=== PATIENT | female | born 1935 | race Caucasian/White ===

== ENCOUNTER 2017-02-17 04:43 | Inpatient (IN) | payer MEDICARE ==
[~2017-02-17] VITALS: Ht 157.5 cm; Wt 95.2 kg
[2017-02-17] VITALS (13 sets, daily range): BP systolic 103–130; BP diastolic 52–73; PULSE 59–89; RESP 12–24; O2SAT 97–99
[~2017-02-17 04:43] MED LIST: CALC-6 PO; CHOL20006 PO; FOSD70 PO; HYDR1TAB69 PO; LOPRESSOR25 MG PO; OMEG1CAP35 PO; SMV40T PO; TRIA1TAB3 PO; VIT B COMPLEX PO; calcium PO
[2017-02-17] MEDS ORDERED: 0.9% Sodium Chloride 1,000 ML IV ONE (04:56)
[2017-02-17] MEDS ORDERED: Pantoprazole 4 mg/mL 10 mL Inj IVPUSH ONE ×2 (05:00→08:15)
[2017-02-17 05:16] LABS: BASOPHILS % (AUTO) 0.5 % (0-3); EOSINOPHILS % (AUTO) 3.5 % (0-5); Mean Corpuscular Hemoglobin 28.2 pg (27.0-35.0); Mean Corpuscular Volume 87.7 fL (81-100); NEUTROPHILS % (AUTO) 59.8 % (40-74); Platelet Count 226 bil/L (150-400)
[2017-02-17 05:34] LABS: INR 0.96 ratio
[2017-02-17 05:38] LABS: TROPONIN T 0.01 ug/L (0.0-0.011)
[2017-02-17 05:49] LABS: Magnesium 1.8 mg/dL (1.6-2.6)
--- NOTE | 2017-02-17 06:15 | ED.REPORT ---
HPI-General Illness Date of Service February 17, 2017 ED Provider: Doris Ornelas MD The pt is a 81 year old female who presents to the ED via EMS due to several episodes of hematochezia for the past 3 days. Friday night she had 3 episodes of sudden onset black, clotted, red stool. Associated symptoms include vomiting , nausea and lightheadedness. Friday, she did not report any symptoms. This morning she woke up around 0330, had another episode of hematochezia and noticed blood on her nightgown when she woke up. When medics arrived she was hypotensive. Nursing Notes Stated Complaint: RECTAL BLEED Chief Complaint: Female Abdominal Pain Nursing Notes Reviewed: Yes Allergies: Coded Allergies: Sulfa (Sulfonamide Antibiotics) (Verified Allergy, Unknown, SWELLING, 02/17) Adhesives (Verified Adverse Reaction, Intermediate, rash, 02/17/17) Uncoded Allergies: SULFA (Allergy, Severe, Swelling, 02/17/17) Scheduled ([calcium]) PO DAILY with Mg and Zinc Alendronate-Expunged Drug, Do Not Renew! (Alendronate-Expunged Drug, Do Not Renew!) 70 Mg Tablet 70 MG PO QW Friday' Calcium Carbonate-Expunged Drug, Do Not Renew (Tums 500-Expunged Drug, Do Not Renew!) 1 Tab.chew Tab.chew 1 TAB.CHEW PO PRN Cholecalciferol-Expunged Drug, Do Not Renew! (Vitamin Y-8-Tpspbsia Drug, Do Not Renew!) 2,000 Unit Tablet 2,000 UNIT PO DAILY 2 tabs Hydrocod/APAP-Expunged, Do Not Renew! (Hydrocod/APAP 5/500-Expunged, Do Not Renew!) 1 Tab Tablet 1 TAB PO PRN Metoprolol Tart-Expunged Drug, Do Not Renew! (Metoprolol Tart-Expunged Drug, Do Not Renew!) 25 Mg Tab 25 MG PO BID [place]-3 Fatty Acids/Fish Oil-Expunged Drug, D (Fish Oil 1,200 Mg-Expunged Drug, Do Not Renew) 1 Cap Capsule 1 CAP PO DAILY Simvastatin-Expunged Drug, Choose New Med! (Simvastatin-Expunged Drug, Choose New Med!) 40 Mg Tablet 40 MG PO DAILY Triamterene/HCTZ-Expunged Drug, Do Not Renew! (Triamterene/HCTZ 37.5/25-Expunged ,Do Not Renw) 1 Tab Tablet 1 TAB PO AM Vitamin B Complex-Expunged Drug, Do Not Renew (Vitamin B Complex-Expunged Drug, Do Not Renew) Tab PO DAILY General Time Seen by MD: 04:58 Chief Complaint Other (hematochezia) Hx Obtained From: Patient Arrived By: Ambulance Sudden in Onset?: Yes Onset Occurred: 3 days ago Symptom Duration: Since onset Severity: Current: No pain currently Recent Healthcare: No recent doctor visit, No recent hospitalization Similar Sx Previous: No Past Medical History Past Medical History denies Past Surgical History knee surgery Reports: Hysterectomy Smoking History Unknown if Ever Smoker Social History Other Social History: Local resident Review of Systems Full Review of Systems GI: Reports: Bloody/tarry stool, Hematochezia, Nausea, Vomiting Neurologic: Reports: Lightheaded Complete sys rev & neg: except as marked. Physical Exam Vital Signs Vital Signs Date Time Temp Pulse Resp B/P Pulse Ox O2 Delivery O2 Flow Rate FiO2 02/17/17 07:32 66 12 121/52 98 Room Air 02/17/17 04:55 36.8 80 22 130/68 99 Room Air Initial VS: Reviewed Respiratory: Breath sounds normal, Clear to auscultation, No respiratory distress Skin: Warm, Dry Neurologic: Alert, Oriented General/Constitutional: Awake, Alert, No acute distress, Cooperative, Not toxic appearing Head / Eyes: Atraumatic, Normocephalic, PERRL, EOMI Heart Sounds / Murmur: Positive: Systolic murmur present.. (II/) Lower Ext Edema: Positive: Bilateral 1+ Bowel Sounds / Distention: Positive: Bowel sounds hyperactive Interpretation & Diagnostics Lab Results Interpretation Result Diagram: 02/17/17 0655 02/17/17 0500 Test 02/17/17 05:00 02/17/17 06:55 White Blood Count 8.1th/mm3 (3.8-10.1) Red Blood Count 3.09mil/mm3 (3.90-5.20) Mean Corpuscular Volume 87.7fL (81-100) Mean Corpuscular Hemoglobin 28.2pg (27.0-35.0) Mean Corpuscular Hemoglobin Concent 32.1% (32.0-37.0) Red Cell Distribution Width 13.8% (12.3-15.4) Platelet Count 226bil/L (150-400) Neutrophils (%) (Auto) 59.8% (40-74) Lymphocytes (%) (Auto) 26.7% (14-46) Monocytes (%) (Auto) 9.0% (4-12) Eosinophils (%) (Auto) 3.5% (0-5) Basophils (%) (Auto) 0.5% (0-3) Prothrombin Time 10.3sec (8.1-12.5) Prothromb Time International Ratio 0.96ratio Sodium Level 138mEq/L (134-144) Potassium Level 4.1mEq/L (3.5-5.2) Chloride Level 105mEq/L (97-108) Carbon Dioxide Level 19mmol/L (18-29) Blood Urea Nitrogen 38mg/dL (8-27) Creatinine 0.88mg/dL (0.57-1.00) Estimat Glomerular Filtration Rate 88mL/min (>59) Glucose Level 123mg/dL (60-99) Calcium Level 8.7mg/dL (8.5-10.1) Magnesium Level 1.8mg/dL (1.6-2.6) Total Bilirubin 0.2mg/dL (0.0-1.2) Aspartate Amino Transf (AST/SGOT) 13U/L (0-50) Alanine Aminotransferase (ALT/SGPT) 9U/L (0-32) Alkaline Phosphatase 47U/L (25-165) Troponin T 0.010ug/L (0.0-0.011) Total Protein 5.6g/dL (6.4-8.4) Albumin 3.2g/dL (3.4-5.0) Hold Bateman Top Tube Received (Received) Hemoglobin 7.8g/dL (12.0-15.6) Hematocrit 24.7% (35.0-46.0) Re-Eval/Medical Decision Med Decision/Clinical Course 81-year-old woman with painless rectal bleeding. Started 48 hours ago clots for about 12 hours resolved for about 36 hours and then started again this morning. She got some hyperactive bowel tones and feels like there is likely more clots that will be coming out. When medics first arrived her systolic blood pressure was 70 however with 200 mL of fluid it has been in the 120 range and she has been hemodynamically stable throughout her emergency room visit. H&H has dropped significantly and the initial 2 hour emergency room stay. At this point she is not tachycardic she is pain-free there is no active bleeding obvious she is hemodynamically stable not short of breath no chest pain and not meeting criteria for transfusion. She is typed and crossed should that become a necessity. Consultation : Referral / Consult Name: Adilene Tilley DO Consulted With: Hospitalist Call Returned at: 08:05 Scientific Diver: Agrees with eval, Agrees with plan Note: Case discussed. Counseled Regarding: Diagnosis, Lab results, Need for admission Discharge & Departure Primary Impression: GI bleed Additional Impression: Acute blood loss anemia Disposition: ADMITTED TO HOSPITAL Discharge Condition All VS Reviewed: Yes Condition: Stable Referrals: Sunny Queen DO (PCP) Scribcarla Attestation Portion of this note were transcribed by Mariah Bush. I, Dr. Cathy Ornelas, personally performed the history, physical exam, and medical decision-making: I reviewed and confirmed the accuracy for the information in the transcribed note. Signed by: yue Huffman, 02/17/17 0800 copies to: Sunny Queen Shawna L MD February 17, 2017 06:14 Mariah Bush February 17, 2017 06:40
--- NOTE | 2017-02-17 08:06 | DRSVH ---
PROCEDURE: X-RAY CHEST ONE VIEW, PORTABLE ([id number]) INDICATIONS: gi bleed TECHNIQUE: One view of the chest was acquired. COMPARISON: [facility], , CHEST 2VW, 02/11/2014, 15:14. FINDINGS: Surgical changes and devices: None. Lungs and pleura: No pleural effusions or pneumothorax. Lungs are clear. No acute consolidation. S cattered scarring/atelectasis as before. Lungs appear hyperinflated Mediastinum: Mediastinal contours appear normal. Heart size is normal. Bones and chest wall: Lateral curvature of the spine as before IMPRESSION: No definite acute disease or interval change. Chronic interstitial opacities as before. Dictated by: Floyd Torres M.D. on 02/17/2017 at 8:04 Approved by: Floyd Torres M.D. on 02/17/2017 at 8:05
[2017-02-17] MEDS ORDERED: Alum-Mag Hydrox-Simeth 30 mL Suspension PO PRN (08:10)
[2017-02-17] MEDS ORDERED: Ondansetron 2 mg/mL 2 mL Inj IVPUSH PRN (08:10)
[2017-02-17] MEDS ORDERED: Polyethylene Glycol (PEG) 17 Gm Powder PO PRN (08:10)
[2017-02-17] MEDS ORDERED: PEG/Electrolytes 4,000 mL Solution PO ONE (09:05)
--- NOTE | 2017-02-17 09:24 | NUR ---
Admission Pt arrived on [facility], A/Ox3, able to transfer self from gurney to BR, SBA to bathroom due to dizziness. Orientation video playing at this time.
[2017-02-17] MEDS: D5 0.45% NaCl + KCl 20 mEq/L 1,000 ML IV SCH ×2 (12:22→18:09)
[2017-02-17] MEDS ORDERED: Propofol 10,000 mCg/mL 20 mL Inj ONE (13:01)
[2017-02-17] MEDS ORDERED: EPHEDrine/NS 5 mg/mL 5 mL Syringe ONE (13:01)
[2017-02-17] MEDS ORDERED: CHOL500011 PO (14:05)
[2017-02-17] MEDS ORDERED: ALEN70TA2 PO (14:08)
[2017-02-17] MEDS ORDERED: HYDR-4003 PO (14:16)
[2017-02-17] MEDS ORDERED: ASPI325T32 PO (14:31)
[2017-02-17] MEDS ORDERED: ETOD400T PO (14:31)
[2017-02-17] MEDS ORDERED: CLOB15OI2 TP (14:31)
[2017-02-17] MEDS ORDERED: ATRV10T PO (14:31)
--- NOTE | 2017-02-17 16:15 | NUR ---
Off the unit Pt is taken off the unit for completion of colonoscopy/endoscopy. No complains of increased pain, VSS, IV is SL. Report given to Anahy. Pt able to transfer self to sai, voided prior to leaving. Addendum: 02/17/17 at 1833 by MELISSA العلي RN Pt returns from Endo, following completion of upper and lower GI study. VSS, no complains of increased pain. Diet advanced to clear liquids. Daughter at bedside. Call light with in reach, will continue to monitor.
[2017-02-17] MEDS: Lactated Ringer's 1,000 ML IV SCH ×2 (16:40→16:42)
[2017-02-17] MEDS ORDERED: MetoCLOpramide 5 mg/mL 2 mL Inj IVPUSH PRN (16:40)
--- NOTE | 2017-02-17 17:58 | PCM.ANEP1 ---
Post Anesthesia Phase 1 PACU Phase 1 Assessment Vital Signs Vital Signs Date Time Temp Pulse Resp B/P Pulse Ox O2 Delivery O2 Flow Rate FiO2 02/17/17 17:56 70 14 107/64 98 Room Air 02/17/17 17:45 35.4 75 14 107/64 97 Room Air 02/17/17 16:38 36.5 77 16 126/65 97 Room Air 02/17/17 11:05 64 Anesthetic Administered: GA Level of Alertness: Awake, talking SHARIF's with Equal Strength: Yes Pain: No Nausea or Vomiting: No Cardiovascular Function and Hy: No Oxygen Delivery: Room Air Dermatome Level: Full Sensation Complications: No Follow up Care: No Chace Morse MD February 17, 2017 17:58
--- NOTE | 2017-02-17 17:59 | PCM.HPANE ---
Patient Data Surgeon Admitting Provider:Adilene Tilley DO Attending Provider:Adilene Tilley DO Primary Care Physician:Sunny Queen DO Other Provider:Nilo Reed Anesthesia Reason for Visit Lower Gi Bleed Ht/WT & BMI Height (Feet): 5 Height (Inches): 2.00 Weight (Kilograms): 95.200 Body Mass Index 38.62 Allergies Coded Allergies: Sulfa (Sulfonamide Antibiotics) (Verified Allergy, Unknown, SWELLING, 02/17) Adhesives (Verified Adverse Reaction, Intermediate, rash, 02/17/17) Uncoded Allergies: SULFA (Allergy, Severe, Swelling, 02/17/17) Past Anesthesia History Anesthesia History: Denies:: Abnormal Airway, Anesthesia Reactions, Difficult Intubation, Fam Anesthesia Reaction, Fam Malignant Hypertherm, Malignant Hyperthermia Diabetes History Hx Diabetes?: No MRSA MRSA: No Medications Reported Medications Etodolac 400 Mg [id number] Mg PO BID 02/17/17 Clobetasol Propionate 15 Gm Oint...g.1 Applic TP Evening PRN rash Apply to external vulvar/labia rash once every pm 02/17/17 Atorvastatin (Lipitor)10 Mg Tab10 Mg PO DAILY Ref 0 02/17/17 Aspirin 325 Mg [id number] Mg PO DAILY PRN . #1 BOTTLE 02/17/17 Hydrocodone-Acetaminophen 5-325 mg 1 Each Tablet1 Tablet PO Q4H PRN For Pain Ref 0 02/17/17 Alendronate Sodium (Fosamax)70 Mg [id number] Mg PO WEEKLY 30 Days Ref 0 02/17/17 Cholecalciferol (Vitamin D3) (Vitamin D3)5,000 Unit Tablet5,000 Unit PO DAILY 02/17/17 Discontinued Reported Medications Alendronate-Expunged Drug, Do Not Renew! 70 Mg [id number] Mg PO QW Ref 0 Friday's 06/20/09 Hydrocod/APAP-Expunged, Do Not Renew! (Hydrocod/APAP 5/500-Expunged, Do Not Renew!)1 Tab Tablet1 Tab PO PRN Ref 0 06/20/09 Calcium Carbonate-Expunged Drug, Do Not Renew (Tums 500-Expunged Drug, Do Not Renew!)1 Tab.chew Tab.chew1 Tab.chew PO PRN Ref 0 06/20/09 Triamterene/HCTZ-Expunged Drug, Do Not Renew! (Triamterene/HCTZ 37.5/25-Expunged ,Do Not Renw)1 Tab Tablet1 Tab PO AM Ref 0 06/20/09 Simvastatin-Expunged Drug, Choose New Med! 40 Mg Nuuyiv28 Mg PO DAILY Ref 0 06/20/09 Metoprolol Tart-Expunged Drug, Do Not Renew! 25 Mg Tab25 Mg PO BID Ref 0 06/20/09 Cholecalciferol-Expunged Drug, Do Not Renew! (Vitamin O-4-Wswjknap Drug, Do Not Renew!)2,000 Unit Tablet2,000 Unit PO DAILY Ref 0 2 tabs 06/20/09 [calcium] No Conflict Check PO DAILY Ref 0 with Mg and Zinc 06/20/09 Vitamin B Complex-Expunged Drug, Do Not Renew Tab PO DAILY Ref 0 06/20/09 [place]-3 Fatty Acids/Fish Oil-Expunged Drug, D (Fish Oil 1,200 Mg-Expunged Drug, Do Not Renew)1 Cap Capsule1 Cap PO DAILY Ref 0 06/20/09 History History of ENT Problems?: Yes HEENT History: Positive for:: Cataracts (Bilateral cataracts removed 2015) Denies:: Abnormal Airway Difficult Intubation Dysphagia Glaucoma Hearing Problem Sinus Problem TMJ Denture Type: Full- Upper Partial- Lower Teeth Condition: Missing Teeth Hx of Heart Problems?: Yes Cardiovascular History: Positive for:: Edema Heart Murmur Denies:: AICD Abdominal Aortic Aneurism Atrial Fibrillation Cardiac Surgery Chest Pain Congestive Heart Failure Coronary Artery Disease Hypertension Irregular Heartbeat Pacemaker Peripheral Vascular Rheumatic Fever Thrombophlebitis Valvular Heart Disease Hx of Respiratory Problem?: No Respiratory History: Denies:: Asthma COPD Chest Surgery Cough Dyspnea Emphysema Hemoptysis Oxygen Administration Pneumonia Pulmonary Embolism Tuberculosis Use of C-PAP Machine Use of Inhalers / NEBS Hx Neurologic Problems?: No Neurological History: Denies:: Alzheimer's Disease CVA Dementia Dizziness Headaches Multiple Sclerosis Parkinson's Disease Peripheral Neuropathy Seizures TIA Hx of GI Problems?: Yes Gastrointestinal History: Denies:: Cirrhosis Diverticulitis Gall Bladder Disease Gastroesphageal Reflux Gastrointestinal Bleeding Heartburn Hepatitis Hiatal Hernia Liver Disease Rectal Bleeding Hx of Problems?: Yes Genitourinary History: Positive for:: Urinary Tract Infection Denies:: HX of Hemodialysis Kidney Stones Female Hx: Denies:: Currently Endometriosis Pelvic Inflammatory Problems with Breasts? Skin History: Denies:: History Skin Disorders? Pressure Ulcers Hx Musculoskeletal Problems?: Yes Musculoskeletal History: Positive for:: Back Injury Joint Replacement (Partial knees) Denies:: Degenerative Joint Fibromyalgia Musculoskeletal Trauma Myasthenia Gravis Osteoarthritis Rheumatoid Arthritis Systemic Lupus Hx of Psycho/Social Problems?: No Psycho Social History: Denies:: Anxiety Bipolar Disorder Hx Depression Suicide Attempt Hx Surgeries?: Yes (Knee replacement, bunion removed) Other History: Denies:: Cancer Endocrine Disease Hospitalization Thyroid Disease History Blood Transfusions: Positive for:: Accept Blood Products? Blood Transfusions Hx Diabetes: No Hx Alcohol Use: NoHx Substance Use: No Smoking Status: Unknown if Ever Smoker Stop/Bang Treated for Sleep Apnea?: No Do You Have a CPAP Machine?: No Risk Assessment Category Category 1A: Patient has history of documented sleep apnea, and HAS NOT received any narcotic, sedative or anesthesia administration during this stay. Category 1B: Patient has history of documented sleep apnea, and HAS received any narcotic , sedative or anesthesia administration during this stay Category 2: Patient has SUSPECTED Obstructive Sleep Apnea, and HAS received any narcotic , sedative or anesthesia administration during this stay. Category 3: Patient has SUSPECTED Obstructive Sleep Apnea and HAS NOT received narcotic, sedative or anesthesia administration during this stay. Category 4: Outpatient in Procedural Areas with known sleep apnea or who screen positive for High Risk via the STOP/BANG questionnaire. Exam Exam Vital Signs Vital Signs Date Time Temp Pulse Resp B/P Pulse Ox O2 Delivery O2 Flow Rate FiO2 02/17/17 11:05 64 02/17/17 09:35 36.5 73 24 123/71 99 Room Air General Appearance: Alert, Oriented X3, Cooperative, No Acute Distress HEENT/AIRWAY: MP 2, Neck Movement (FROM), Mouth Opening (3 FBMO) Lungs: Clear to Auscultation, Normal Air Movement Heart: Exam Unremarkable, Regular Rate/Rhythm, No Murmurs/Rubs/Gallops Meds/Labs/Diagnostics Admission Meds Current Medications Pantoprazole 80 mg 80 mg STAT ONCE IVPUSH Last administered on 02/17/17 05:14 ; Start 02/17/17 at 05:00; Stop 02/17/17 at 05:01; Status DC Sodium Chloride 1,000 ml @ 0 mls/hr Q0M ONCE IV Last administered on 05:14; Start 02/17/17 at 04:56; Stop 02/17/17 at 04:58; Status DC Potassium Chloride/Dextrose/ Sod Cl (Dextrose 5% 0.45% NaCl + KCl 20 mEq/L) 1, 000 ml @ 100 mls/hr Q10H IV Last administered on 02/17/17 12:22; Start at 08:09 Polyethylene Glycol/ Electrolytes (Colyte) 4,000 ml ONCE ONCE PO Last administered on 02/17/17 12:23; Start 02/17/17 at 09:05; Stop 02/17/17 at 10:54 ; Status DC Labs Test 02/17/17 05:00 02/17/17 06:55 02/17/17 09:53 White Blood Count 8.1th/mm3 (3.8-10.1) Red Blood Count 3.09mil/mm3 (3.90-5.20) Mean Corpuscular Volume 87.7fL (81-100) Mean Corpuscular Hemoglobin 28.2pg (27.0-35.0) Mean Corpuscular Hemoglobin Concent 32.1% (32.0-37.0) Red Cell Distribution Width 13.8% (12.3-15.4) Platelet Count 226bil/L (150-400) Neutrophils (%) (Auto) 59.8% (40-74) Lymphocytes (%) (Auto) 26.7% (14-46) Monocytes (%) (Auto) 9.0% (4-12) Eosinophils (%) (Auto) 3.5% (0-5) Basophils (%) (Auto) 0.5% (0-3) Prothrombin Time 10.3sec (8.1-12.5) Prothromb Time International Ratio 0.96ratio Sodium Level 138mEq/L (134-144) Potassium Level 4.1mEq/L (3.5-5.2) Chloride Level 105mEq/L (97-108) Carbon Dioxide Level 19mmol/L (18-29) Blood Urea Nitrogen 38mg/dL (8-27) Creatinine 0.88mg/dL (0.57-1.00) Estimat Glomerular Filtration Rate 88mL/min (>59) Glucose Level 123mg/dL (60-99) Calcium Level 8.7mg/dL (8.5-10.1) Magnesium Level 1.8mg/dL (1.6-2.6) Total Bilirubin 0.2mg/dL (0.0-1.2) Aspartate Amino Transf (AST/SGOT) 13U/L (0-50) Alanine Aminotransferase (ALT/SGPT) 9U/L (0-32) Alkaline Phosphatase 47U/L (25-165) Troponin T 0.010ug/L (0.0-0.011) Total Protein 5.6g/dL (6.4-8.4) Albumin 3.2g/dL (3.4-5.0) Hold Bateman Top Tube Received (Received) Hemoglobin 7.8g/dL (12.0-15.6) Hematocrit 24.7% (35.0-46.0) Hepatitis C Comment . Plan Impression Patient chart reviewed, patient interviewed and anesthestic plan with risks, benefits, and alternatives discussed, and informed consent obtained. NPO per Anesth. Guidelines: Yes ASA Physical Status: ASA2 Mod Systemic Disease Anesthetic Plan: GA, MAC Bene/Risks/Altern/Consents: Yes HP Complete Prior to Induction: Yes Chace Morse MD February 17, 2017 15:59
--- NOTE | 2017-02-17 20:17 | PCM.HPMED ---
Subjective Date of Service February 17, 2017 Primary Provider: Admitting Physician: Primary Care Physician: Sunny Queen DO Attending Physician: Admit Status: From the Emergency Department Chief Complaint: GI bleed History of Present Illness: 81-year-old white female with past medical history of back pain and murmur, hepatitis of unknown type, previous colonoscopy finding of several polyps is presenting to the ER today after several episodes of bloody stools. She states that she has had this before but these episodes would abruptly resolved on their own. On Friday around midnight she woke up and had a bloody stool and then it continued on she had 2 more 1:30 AM and then 8:30 AM. The rectal bleeding has resolved thereafter but then this a.m. she got up and started having them again. That she came to the ER. She states that the bleeding is painless, she just cramps right before having a bowel movement. She states that she has been red clots in it filled up the toilet bowl. She states that she had a number of colonoscopies she thinks the last one was 6-7 years ago. She believes at least 37 polyps were taken out during 3 scopes. She denies ever needing a blood transfusion. Because of this. She does not believe she has hemorrhoids. She states that she needed a transfusion during a hysterectomy in the remote history. Later on when she tried to donate blood she was told she had hepatitis. She does not know what type this is and she was never needed to be treated for it. She denies urinary symptoms, hematemesis, weakness, hypokalemia. She has no headaches or blurred vision. She states that she had nausea she had one episode of vomiting and Friday. She is feeling lightheaded and endorsing general malaise. She denies fevers and chills, chest pain. She has chronic back pain otherwise no acute change in her pain level. Patient does not take much medications at home she says she takes Fosamax, simvastatin, vitamin D. In the ER patient's hemoglobin dropped from 8.7-7.8 after fluids. Her blood pressure was 121/52, pulse was 66, respirations 12, pulse ox 98%, BUN 38 and creatinine is 0. 88. INR 0.91 her lab work is otherwise unremarkable. Patient is admitted to the Green team for concern for acute lower GI bleed. Review of Systems: Gen.: No weight gain patient has not been having fevers and chills, endorsing general malaise Eyes: no visual disturbances or blurring vision HEENT: No nose/throat drainage, no pain in ears or throat, no hearing loss Lymph: No lymph nodes noted Cardiac: No chest pain, orthopnea, PND, palpitations , negative for pedal edema and dyspnea on exertion Pulmonary: Denies wheezing and chest pain GI: No anorexia , positive for nausea , negative for vomiting blood , positive for bloody stool : no dysuria hematuria urinary frequency or decrease in urine output Musculoskeletal: Joint swelling no joint pain no new muscle aches . Endorsing chronic back pain Neuro: No syncope, seizures no loss of consciousness no new focal weakness, numbness or tingling Psychiatric: New new anxiety insomnia or depression Endocrine: No new heat or cold intolerances polyuria or polydipsia Hematology: No lymphadenopathy or easy bleeding or bruising noted skin: No new rashes, stasis dermatitis Allergies Coded Allergies: Sulfa (Sulfonamide Antibiotics) (Verified Allergy, Unknown, SWELLING, 02/17) Adhesives (Verified Adverse Reaction, Intermediate, rash, 02/17/17) Uncoded Allergies: SULFA (Allergy, Severe, Swelling, 02/17/17) PMH Past medical history significant for chronic back problems, hepatitis of unknown type, osteopenia/osteoporosis Surgical History Remarkable for bilateral knee replacements, bunionectomy, hysterectomy Family History Mother during childbirth at age 44 Father at her mother's after having a heart attack Social History Hx Alcohol Use: Yes (Occasional) Hx Substance Use: No Hx Tobacco Use: No Smoking Status: Unknown if Ever Smoker Living Arrangement: Alone (in [facility], uses a cane for ambulation) Exam Vital Signs Vital Sign - Last Date Time Temp Pulse Resp B/P Pulse Ox O2 Delivery O2 Flow Rate FiO2 02/17/17 07:32 66 12 121/52 98 Room Air 02/17/17 04:55 36.8 Intake and Output 02/16/17 02/16/17 02/17/17 Cumulative From/Thru 15:00 23:00 07:00 02/17/17 04:55 - 02/17/17 05:14 Intake Total 1000 ml 1000 ml Balance 1000 ml 1000 ml Intake IV Total 1000 ml 1000 ml Lab and Diagnostics Result Diagram: 02/17/17 0655 02/17/17 0500 Assessment & Plan This is a 81-year-old white female presenting with acute onset rectal bleeding. She has had prior episodes but it does not appear that she was worked up for this before Assessment #1 rectal bleed: POA, Differential includes diverticular bleed, AVMs , hemorrhoids, colon cancer -- GI is consulted: Conner was ordered to prep her for colonoscopy -- Ultrasound of abdomen is ordered -- 2 units of blood transfused, followed H&H in the evenin -- Nothing by mouth diet Assessment #2 hepatitis of unknown type, POA -- Hepatitis panel is ordered -- Ultrasound of abdomen Assessment #3 low grade systolic murmur: This may be due to anemia -- We will transfuse as above -- We will continue to monitor -- We will consider echo if need be Assessment #4 chronic low back pain -- Continue by mouth medication Vicodin when necessary Assessment #5 osteoporosis -- Continue Fosamax Disposition: She will need colonoscopy or possibly upper GI endoscopy also. We will follow recommendations from Dr. blas. Possible discharge to home after she is stable hemodynamically. Pain Evaluation: Adequate Pain Control Resuscitation Status: DNR/DNI:Do Not Resuscitate/Intubate (alternate decision- maker son Zander 4 to [phone], database daughter [phone]) Time spent 45 minutes Adilene Tilley DO February 17, 2017 08:07
[2017-02-17] MEDS ORDERED: Clobetasol Prop 0.05% 15 Gm Ointment TOPICAL PRN (20:25)
[2017-02-17] MEDS: HYDROcodone-APAP 5-325 mg Tablet PO PRN (21:05)
[2017-02-17] MEDS: 0.9% Sodium Chloride 250 ML IV SCH (21:30)
--- NOTE | 2017-02-17 21:43 | NUR ---
PRBC 1 Unit Consent formed signed. Verified with Wanda Orozco Rn Initial VS BP: 106/56 T: 36.7 HR: 59 SPO2: 99 Lung sounds clear Continuing to monitor. Addendum: 02/17/17 at 2354 by LEYDA GUEVARA RN Post transfusion VS T:36.7 HR: 69 RR: 18 BP: 108/70. Pt's lung sounds clear. No adverse reaction observed or reported by the pt. Denies chest pain, sob, n/v and has been afebrile. Will await for next H&H draw.
--- NOTE | 2017-02-17 21:59 | CONS ---
[address] [address] CONSULTATION REPORT PATIENT: OLE SIFUENTES : 1935 MR#: [id number] ADMIT: 02/17/2017 JOB ID: [id number] DATE OF SERVICE: REQUESTING PHYSICIAN: Dr. Tilley, hospitalist team. REASON FOR CONSULTATION: Rectal bleeding. HISTORY OF PRESENTING ILLNESS: The patient is an 81-year-old woman who has a history of multiple colon polyps, as well as diverticulosis, who states that she was in her usual state of health up until Friday of last week when she had painless rectal bleeding that started without notice. She reports having had two episodes on Friday followed by an episode on Friday. Then, following the episode on Friday she felt a little lightheaded. She also had some nausea with an episode of vomiting of food contents, no hematemesis, and she thought this would pass. However, this morning at approximately 3:30 to 4 a.m. she woke up with blood that she had passed overnight. She; therefore, called EMS. When medics arrived she was reportedly hypotensive. She denied any associated abdominal pain. She states that she does take Etodolac as needed for arthritis pain, but denies any other anticoagulants or any other NSAIDs on a regular basis. She reports having had a similar type of bleeding approximately 15 years ago and having had a colonoscopy then, but since then no further episodes of rectal bleeding. She reports no history of peptic ulcer disease. She does report a history of multiple colon polyps and states that she has had three colonoscopies in her lifetime and has had a total of 36 colon polyps removed. Her last colonoscopy she reports was more than 10 years ago and she decided several years ago that after the age of 78 that she would no longer want to pursue colonoscopy for colon cancer screening. PAST MEDICAL HISTORY: Significant for arthritis. She denies any heart or lung issues. PAST SURGICAL HISTORY: Includes hysterectomy and knee surgery. SOCIAL HISTORY: A history of remote tobacco use in the past but quit in 1960s. Denies any alcohol abuse. She lives by herself. MEDICATIONS: Her home medications she states include Etodolac, multivitamins and simvastatin. REVIEW OF SYSTEMS: Her 10-point review of systems is negative except as mentioned in the HPI. PHYSICAL EXAMINATION: Her temperature is 36.5, her pulse is 73, blood pressure is 122/71, respiratory rate is 24, O2 saturation is 99% on room air. Generally, she is an elderly appearing woman who appears younger than her stated age. HEENT: Mild pallor. No icterus. Oropharynx is clear. Chest exam: Clear to auscultation bilaterally. Cardiovascular exam: S1, S2 heard. Systolic murmur is appreciated. Abdomen: Obese, soft, nontender, nondistended, without hepatosplenomegaly. Extremities with trace edema. LABORATORY DATA: As per the EMR. ASSESSMENT AND PLAN: An 81-year-old woman who takes nonsteroidal anti-inflammatory drugs and with a history of diverticulosis and history of colon polyps, presenting with painless rectal bleeding. I suspect based on her history of diverticulosis. We may be dealing with a diverticular bleed; therefore, we will prep for colonoscopy. If colonoscopy should be negative, will plan for upper endoscopy to evaluate for upper gastrointestinal source. In the meantime, would continue to hold any NSAIDs. Agree with proton pump inhibitor daily. Continue to follow H and H closely, and transfuse blood products as needed. Discuss risks and benefits of colonoscopy and upper endoscopy with the patient and she was agreeable to proceed. Colon prep will be started and the patient will be planned for endoscopic evaluation today. If the patient should become unstable and have active bleeding, recommend Interventional Radiology be consulted for possible angiogram with possible embolization if needed. Thank you for allowing me to participate in the patient's care. If you have any further questions, please not hesitate to contact me.
[2017-02-17 22:06] LABS: APPEARANCE,URINE HAZY (CLEAR,HAZY); COLOR,URINE YELLOW (YELLOW); PH,URINE 5.5 (5.0-8.0)
[2017-02-17 22:07] LABS: OCCULT BLOOD,URINE SMALL (NEGATIVE); UROBILINOGEN,URINE NORMAL (NORMAL)
--- NOTE | 2017-02-18 00:23 | ENDO ---
[address] [address] ENDOSCOPY PROCEDURE PATIENT: OLE SIFUENTES : 1935 MR#: [id number] ADMIT: 02/17/2017 JOB ID: [id number] DATE OF PROCEDURE: PROCEDURE: Colonoscopy. INDICATION: Rectal bleeding. SEDATION: Patient's ASA classification, Mallampati score and medications as per Dr. Chace Morse's anesthesia report. INSTRUMENT USED: Was a [id number]. PREPARATION QUALITY: Good. PROCEDURE DETAILS: After informed consent was obtained, the patient was brought into the GI suite, where she was placed on oxygen via nasal cannula and monitored with continuous pulse oximeter, telemetry, and blood pressure monitoring. A time-out was performed. Then, she was placed in the left lateral decubitus position and medications were administered for sedation. Digital rectal exam was performed which was unremarkable. No fresh or old blood was seen on exam. The pediatric colonoscope was then inserted into the rectum and advanced under direct visualization to the terminal ileum without difficulty. The terminal ileum appeared unremarkable. The colonoscope was then withdrawn back into the rectum as the mucosa and lumen were examined. In the rectum, retroflexion was performed. Following retroflexion, remaining air in the rectum was suctioned and procedure was completed. FINDINGS: 1. Normal appearing terminal ileum. 2. Pandiverticulosis throughout the entire colon extending from the cecum to the sigmoid colon. No fresh bleeding was seen, however, there was old blood seen in the left side of the colon which cleared with irrigation and suctioning. 3. On retroflexed views small internal hemorrhoids were noted. IMPRESSION: 1. Pandiverticulosis. 2. Internal hemorrhoids. Suspect bleeding may have been diverticular, however, secondary to patient's nonsteroidal anti-inflammatory use will proceed to upper endoscopy to rule out an upper gastrointestinal source.
--- NOTE | 2017-02-18 00:25 | ENDO ---
[address] [address] ENDOSCOPY PROCEDURE PATIENT: OLE SIFUENTES : 1935 MR#: [id number] ADMIT: 02/17/2017 JOB ID: [id number] DATE OF PROCEDURE: PROCEDURE: Endoscopy. INDICATION: Rectal bleeding. SEDATION: Please see above for ASA classification, Mallampati score, and medications. INSTRUMENT USED: Was [id number]. PROCEDURE DETAILS: After completion of the colonoscopy, the patient was turned and a bite block was placed. The standard EGD scope was inserted through the bite block and advanced without difficulty to the second portion of duodenum. FINDINGS: 1. Normal appearing duodenal bulb, first and second portion. 2. In the pylorus there was a linear clean-based ulcer that measured approximately 5 mm. 3. In the distal antrum at the seven o'clock position there was what appeared to be a 3-4 mm clean-based ulcer. 4. A single biopsy was obtained in the gastric body to rule out H. pylori. 5. Retroflexed views in the gastric body revealed a normal appearing cardia and fundus. 6. The GE junction was irregular at 37 cm. 7. Normal appearing esophagus. IMPRESSION: 1. Pyloric channel ulcer. 2. Antral ulcer. RECOMMENDATIONS: 1. Await biopsy results for H. pylori testing. 2. PPI b.i.d. 3. Avoid NSAIDs and anticoagulants. 4. If active bleeding should restart, please obtain tagged RBC scan along with a Radiology consult for possible angiogram with possible embolization if needed. COMPLICATIONS: None. ESTIMATED BLOOD LOSS: Less than 5 mL.
[2017-02-18 03:14] LABS: Hepatitis A Antibody IgM Negative (Negative); Hepatitis B Core Antibody IgM Negative (Negative)
[2017-02-18] MEDS: D5 0.45% NaCl + KCl 20 mEq/L 1,000 ML IV SCH (04:33)
[2017-02-18 04:37] VITALS: BP 122/61; PULSE 72; RESP 18; O2SAT 95
[2017-02-18 06:58] LABS: BASOPHILS % (AUTO) 0.5 % (0-3); EOSINOPHILS % (AUTO) 4.8 % (0-5); MONOCYTES % (AUTO) 9.6 % (4-12); Mean Corpuscular Hemoglobin 27.9 pg (27.0-35.0); Mean Corpuscular Volume 87.3 fL (81-100); Platelet Count 158 bil/L (150-400)
[2017-02-18] MEDS ORDERED: 0.9% Sodium Chloride 1,000 ML IV SCH (07:25)
[2017-02-18] MEDS: Pantoprazole 4 mg/mL 10 mL Inj IVPUSH SCH ×2 (07:42→16:33)
[2017-02-18] MEDS: 0.9% Sodium Chloride 250 ML IV SCH (07:53)
--- NOTE | 2017-02-18 09:19 | DRSVH ---
PROCEDURE: US ABDOMEN INDICATIONS: hepatitis hx TECHNIQUE: Real-time scanning was performed of the abdominal and retroperitoneal organs, with image documentatio n. COMPARISON: [facility], US, RETROPERITONEAL LTD, 02/07/2012, 9:07. [facility], US, US AORTA RETROPERITONEAL LTD, 01/22/2017, 9:55. [facility] , US, RETROPERITONEAL LTD, 04/15/2014, 10:04. FINDINGS: Liver length: 17.38 cm Gallbladder Wall Thickness: 2.20 mm CBD: 2.30 mm Spleen length: 9.20 cm Right kidney length: 10.16 cm Left kidney length: 11.24 cm Aorta(Mid): 3.03 cm RCIA: 1.45 cm LCIA: 1.54 cm Liver: Liver is normal in size and homogeneous in echotexture. Simple right hepatic lobe cyst prese nt measuring roughly 3.6 cm. Gallbladder: No gallstones identified. Normal gallbladder wall. No pericholecystic fluid. Negativ e sonographic Stallings sign. Biliary ducts: Intrahepatic bile ducts are non-dilated. Extrahepatic bile duct caliber is normal. Normal is 6-7 mm or less in diameter, or 10 mm or less post-cholecystectomy. Pancreas: Not well-visualized. Spleen: Spleen is normal in size and homogeneous in echotexture. Kidneys: Kidneys are normal in size and echotexture. No hydronephrosis or nephrolithiasis. No tammie d masses. Left superior pole renal cyst measuring roughly 2.0 cm. Aorta: Mild aneurysmal dilatation of the mid to distal aorta redemonstrated measuring up to 3.0 cm. Iliacs: Proximal common iliac arteries are normal in caliber at less than 2.5 cm. IVC: Intrahepatic inferior vena cava is patent. Miscellaneous: No free abdominal fluid. IMPRESSION: 1. Hepatic and left renal cyst redemonstrated. 2. No significant change in mid to distal abdominal aortic aneurysm. Dictated by: Gareth MONTIEL Interpreted: Helene Fraire MD on 02/18/2017 at 9:17 Transcribed by: EULALIA on 02/18/2017 at 9:19 Approved by: Helene Fraire MD, PhD on 02/18/2017 at 9:20
--- NOTE | 2017-02-18 09:21 | NUR ---
Social Work-initial assessment/readiness for discharge: Data:See initial assessment. pt is a 81 y/o female who was admitted on 02/17/17 for lower GI Bleed per H&P. Pt's insurance is [email or web address] and PCP is Sunny Queen DO. EMR reviewed. Pt's readmission score is 2. SW met with pt at bedside to discuss discharge planning, SW role explained. Pt is alert and oriented x3. Pt resides at home alone on [address] where she remains independent with ADLs. Pt uses a cane at baseline and has a stair climber in her house to access the second level. Pt does have life alert. Pt has no HH or SNF history. Pt has no longterm care insurance or VA benefits. SW discussed DPOA/ advanced directive, pt confirmed she is working on completing this with her senior trial attorney, SW encouraged a copy to be brought in. Pt feels like she has enough help at home. Per RN notes, pt has been up independent in her room. Pt's daughter to provide transport home at discharge. SW provided phone number and plan on white board in room. SW will continue to follow if needs arise. Assessment:Pt who is independent at baseline. Plan:Pt to discharge home when medically stable via POV. No anticipated discharge needs. SW will continue to follow if needs arise. CRYS Starks Addendum: 02/18/17 at 0930 by SALMA LOPEZ SS Amended: Links added.
[2017-02-18 13:33] VITALS: BP 119/67; PULSE 64; RESP 18; O2SAT 98
--- NOTE | 2017-02-18 14:38 | NUR ---
diet pt state that she was able to eat all of her "soft diet" lunch. She is anxious to increase her diet to a general diet. pt agrees to monitor how her stomach feels post eating and will let nursing know if she doesn't tolerate her meal.
--- NOTE | 2017-02-18 17:51 | PCM.PNMED ---
Subjective Date of Service February 18, 2017 Subjective no complaints no further bleeding tolerating regular diet Exam Vital Signs Vital Sign - Last Date Time Temp Pulse Resp B/P Pulse Ox O2 Delivery O2 Flow Rate FiO2 02/18/17 13:33 36.5 64 18 119/67 98 Room Air Intake and Output 02/17/17 02/17/17 02/18/17 Cumulative From/Thru 15:00 23:00 07:00 02/17/17 04:55 - 02/18/17 06:33 Intake Total 300 ml 841 ml 2141 ml Output Total 2875 ml 2875 ml Balance -2575 ml 841 ml -734 ml Intake Oral 0 ml 0 ml IV Total 300 ml 555 ml 1855 ml Packed Cells 286 ml 286 ml Output Urine Total 100 ml 100 ml Stool Total 2775 ml 2775 ml Exam GEN- oriented to person, place and time heent- pallor present resp-clear bilaterally cvs-RRR abd-soft, non distended, non tender ext-trace edema Lab and Diagnostics Result Diagram: 02/18/17 0602 02/18/17 0602 Assessment & Plan Gastrointestinal bleeding -etiology likely diverticular rather than antral ulcers -recommend continie PPI BID for 8 weeks , with repeat egd in 8 weeks -colonoscopy revealed several colon polyps that were 5mm and less, discussed with patient, she will decide later if she wiants to pursue colonoscopy for removal. -recommended taking miralax if constipation and increasing fiber in diet if H/H stable in AM, could D/C home -my office will contact her to schedule outpatient repeat EGD VTE Mechanical Devices: Venous Foot Pump Resuscitation Status: DNR/DNI:Do Not Resuscitate/Intubate (alternate decision- maker son Zander 4 to [phone], database daughter [phone]) Sree Abdi MD February 18, 2017 17:51
[2017-02-18 19:58] VITALS: BP 115/70; PULSE 66; RESP 18; O2SAT 100
--- NOTE | 2017-02-18 20:07 | PCM.PNMED ---
Subjective Date of Service February 18, 2017 Subjective Patient received 1unit of prbc yesterday, f/u h&h came up appropriately. GI did colonoscopy an duodendoscopy, no active bleeding source was found. She states she has had no more episodes of hematochezia. Denies abdominal pain, nausea, vomiting. Exam Vital Signs Vital Sign - Last Date Time Temp Pulse Resp B/P Pulse Ox O2 Delivery O2 Flow Rate FiO2 02/18/17 04:37 36.4 72 18 122/61 95 Room Air Intake and Output 02/17/17 02/17/17 02/18/17 Cumulative From/Thru 15:00 23:00 07:00 02/17/17 04:55 - 02/18/17 00:30 Intake Total 300 ml 286 ml 1586 ml Output Total 2875 ml 2875 ml Balance -2575 ml 286 ml -1289 ml Intake Oral 0 ml 0 ml IV Total 300 ml 1300 ml Packed Cells 286 ml 286 ml Output Urine Total 100 ml 100 ml Stool Total 2775 ml 2775 ml Exam General: Pale appearing, NAD HEENT: Normocephalic, atrauamatic Heart: Soft systolic murmur, RRR Lungs: CTA, no crackles or wheezes Ext: Trace swelling is present Neuro: No focal deficits Psych: Neg for anxiety Abd: NT, ND, normal bowel sounds Neck: Neg for JVD IVs and Medications IV Fluids None Medications Reviewed: Medications were reviewed in detail Lab and Diagnostics Laboratory Tests Test 02/17/17 20:35 02/17/17 21:00 02/18/17 00:42 02/18/17 06:02 Hemoglobin 6.9g/dL (12.0-15.6) 7.8g/dL (12.0-15.6) 7.9g/dL (12.0-15.6) Hematocrit 21.9% (35.0-46.0) 24.7% (35.0-46.0) 24.7% (35.0-46.0) Urine Color Yellow (YELLOW) Urine Appearance Hazy (CLEAR,HAZY) Urine pH 5.5 (5.0-8.0) Urine Specific [place] 1.025 (1.003-1.035) Urine Protein Negativemg/dL (NEG,TRACE) Urine Glucose (UA) Negativemg/dL (NEGATIVE) Urine Ketones Negativemg/dL (NEGATIVE) Urine Occult Blood Small (NEGATIVE) Urine Nitrite Positive (NEGATIVE) Urine Bilirubin Negative (NEGATIVE) Urine Urobilinogen Normalmg/dL (NORMAL) Urine Leukocyte Esterase Small (NEGATIVE) Urine RBC 3-10/hpf (0-2) Urine WBC 11-50/hpf (0-5) Urine Epithelial Cells Few/hpf (NONE-MOD) Urine Crystals None seen (NONE SEEN) Urine Bacteria Few/hpf (NONE-FEW) Urine Hyaline Casts None/lpf (NONE) Urine Granular Casts None seen (NONE SEEN) Urine Waxy Casts None seen (NONE SEEN) Urine Red Blood Cell Casts None seen (NONE SEEN) Urine White Blood Cell Casts None seen (NONE SEEN) Urine Mucus None seen (None Seen) Urine Trichomonas None seen (NONE SEEN) Urine Yeast None (NONE SEEN) Urinalysis Comment None Urine Culture Reflexed Indicated White Blood Count 6.2th/mm3 (3.8-10.1) Red Blood Count 2.83mil/mm3 (3.90-5.20) Mean Corpuscular Volume 87.3fL (81-100) Mean Corpuscular Hemoglobin 27.9pg (27.0-35.0) Mean Corpuscular Hemoglobin Concent 32.0% (32.0-37.0) Red Cell Distribution Width 15.0% (12.3-15.4) Platelet Count 158bil/L (150-400) Neutrophils (%) (Auto) 62.0% (40-74) Lymphocytes (%) (Auto) 22.6% (14-46) Monocytes (%) (Auto) 9.6% (4-12) Eosinophils (%) (Auto) 4.8% (0-5) Basophils (%) (Auto) 0.5% (0-3) Sodium Level 140mEq/L (134-144) Potassium Level 3.7mEq/L (3.5-5.2) Chloride Level 108mEq/L (97-108) Carbon Dioxide Level 22mmol/L (18-29) Blood Urea Nitrogen 20mg/dL (8-27) Creatinine 0.71mg/dL (0.57-1.00) Estimat Glomerular Filtration Rate 113mL/min (>59) Glucose Level 114mg/dL (60-99) Calcium Level 7.8mg/dL (8.5-10.1) Total Bilirubin 0.3mg/dL (0.0-1.2) Aspartate Amino Transf (AST/SGOT) 12U/L (0-50) Alanine Aminotransferase (ALT/SGPT) 8U/L (0-32) Alkaline Phosphatase 39U/L (25-165) Total Protein 4.8g/dL (6.4-8.4) Albumin 2.9g/dL (3.4-5.0) Microbiology 02/17/17 Urine Culture - Preliminary, Resulted Result Diagram: 02/18/17 0042 02/17/17 0500 X-Rays, CTs and MRIs US Abd IMPRESSION: 1. Hepatic and left renal cyst redemonstrated. 2. No significant change in mid to distal abdominal aortic aneurysm. Dictated by: Gareth Bolanos RRA Interpreted: Helene Fraire MD on 02/18/2017 at 9:17 Transcribed by: EULALIA on 02/18/2017 at 9:19 Approved by: Helene Fraire MD, PhD on 02/18/2017 at 9:20 Assessment & Plan This is a 81-year-old white female presenting with acute onset rectal bleeding. She has had prior episodes but it does not appear that she was worked up for this before Assessment #1 rectal bleed: POA, Differential includes diverticular bleed (#1), AVMs, hemorrhoids, colon cancer -- GI is consulted: GoLYTELY was ordered to prep her for colonoscopy: -- EGD: "Await biopsy results for H. pylori testing. PPI b.i.d. Avoid NSAIDs and anticoagulants. If active bleeding should restart, please obtain tagged RBC scan along with a Radiology consult for possible angiogram with possible embolization if needed." -- colonoscopy: --"Pandiverticulosis, Internal hemorrhoids. Suspect bleeding may have been diverticular, however, secondary to patient's nonsteroidal anti-inflammatory use will proceed to upper endoscopy to rule out an upper gastrointestinal source." -- Ultrasound of abdomen is ordered: -- 1 units of blood transfused -- advance diet as tolerated -- 02/18 GI Recs: "Gastrointestinal bleeding -etiology likely diverticular rather than antral ulcers -recommend continie PPI BID for 8 weeks , with repeat egd in 8 weeks -colonoscopy revealed several colon polyps that were 5mm and less, discussed with patient, she will decide later if she wants to pursue colonoscopy for removal. -recommended taking miralax if constipation and increasing fiber in diet if H/H stable in AM, could D/C home -my office will contact her to schedule outpatient repeat EGD" Assessment #2 hepatitis of unknown type, ruled out based n hepatic panel POA -- Hepatitis panel is ordered: Negative -- Ultrasound of abdomen: Assessment #3 low grade systolic murmur: This may be due to anemia -- 1 unit of PRBC was transfused -- We will consider echo if need be Assessment #4 chronic low back pain -- Continue by mouth medication Vicodin when necessary Assessment #5 osteoporosis -- Continue Fosamax Assessment #5: Abdominal Aortic Aneurysm, POA -- stable. -- "For asymptomatic patients, the risk of AAA rupture generally exceeds the risk associated with elective AAA repair when aneurysm diameter exceeds 5.5 cm " Disposition: She will need colonoscopy or possibly upper GI endoscopy also. We will follow recommendations from Dr. blas. Possible discharge to home after she is stable hemodynamically and not ahving active bleeding. Pain Evaluation: Adequate Pain Control Resuscitation Status: DNR/DNI:Do Not Resuscitate/Intubate (alternate decision- maker son Zander 4 to [phone], database daughter [phone]) Time spent 25 min Adilene Tilley DO February 18, 2017 05:18
[2017-02-19] MEDS: HYDROcodone-APAP 5-325 mg Tablet PO PRN (04:15)
--- NOTE | 2017-02-19 04:54 | NUR ---
No active GI bleed overnight Pt A&OX3, denies any nausea, vomiting or abdominal pain. Had 1 small BM yesterday, loose, light brown per pt report, no BM overnight. VSS, H&H improved, last check at 2037 H&H 8.05/01. GI bleed appears stopped. Pt eager to go home.
[2017-02-19 05:10] VITALS: BP 110/61; PULSE 65; RESP 18; O2SAT 95
[2017-02-19] MEDS ORDERED: Pantoprazole 40 mg ER24 Tablet PO SCH (08:21)
--- NOTE | 2017-02-19 10:17 | PCM.DIMED ---
Discharge Instructions Date of Service February 19, 2017 Dates of Hospitalization February 17, 2017 at 09:03 Discharge Diagnosis Discharge Diagnosis GI Bleed likely diverticular, Upper GI Bleed due to NSAID usage, Hyperlipidemia Diet Heart Healthy Activity No restrictions Call your provider Fever or Chills, Shortness of breath, Bleeding, Chest pain, Vomitting, Excessive diarrhea, Weakness (unilateral), Other Patient Instructions Recommended taking miralax if constipation and increasing fiber in diet Please avoid Aspirin until you see your PCP. Avoid Etodolac, Ibuprofen and other NSAIDs. Take Pantoprazole twice daily as prescribed Follow-up plan Repeat egd in 8 weeks, Dr. Gao's office will contact her to schedule outpatient repeat EGD -colonoscopy revealed several colon polyps that were 5mm and less, discussed with patient, she will decide later if she wants to pursue colonoscopy for removal. F/U with PCP in one week Repeat H&H prior to follow up in one week Adilene Tilley DO February 19, 2017 10:17
[2017-02-19] MEDS ORDERED: POLY17PO6 PO (10:24)
[2017-02-19] MEDS ORDERED: PANT40TA3 PO (10:24)
[2017-02-19] MEDS ORDERED: FERR-83 PO (10:45)
[2017-02-19] MEDS: 0.9% Sodium Chloride 250 ML IV SCH (11:38)
--- NOTE | 2017-02-19 14:05 | NUR ---
spiritual care: pt request brief visit before discharge.pt in good spirits and eager to get home. appreciative of spiritual care attention.
--- NOTE | 2017-02-19 14:11 | NUR ---
Social Work- Discharge: Data:Pt is a 81 y/o female on day 2 of hospitalization for lower GI Bleed per H&P. Pt is medically cleared for discharge and is up independent in room. Pt has life alert and uses a cane at baseline.Pt's daughter to provide transport home at discharge. No further needs assessed. Assessment:Pt who is independent at baseline. Plan:Pt to discharge home via POV. No need assessed. CRYS Hayes
--- NOTE | 2017-02-19 14:53 | NUR ---
Discharge Patient left unit at 1320 with all belongings, accompanied by family. Pt. received information/teaching on new medications (ferrous sulfate, polyethylene glycol, pantoprazole), current medical problems, and providers orders. Pt. verbalized understanding. IV dc'd intact. Patient left with stable VS and no signs of distress.
--- NOTE | 2017-02-22 02:33 | PCM.DC.MED ---
Discharge Summary Date of Service February 22, 2017 Dates of Hospitalization Date of Hospital Admission February 17, 2017 at 09:03 Date of Discharge: February 19, 2017 Providers: Admitting Physician: Adilene Hinojosa DO Primary Care Physician: Sunny Queen DO Attending Physician: Adilene Hinojosa DO Diagnosis at Time of Discharge Diagnosis at Time of Discharge GI Bleed likely diverticular, Upper GI Bleed due to NSAID usage, Hyperlipidemia Consultations GI Procedures XRay, CTs & MRIs US Abd IMPRESSION: 1. Hepatic and left renal cyst redemonstrated. 2. No significant change in mid to distal abdominal aortic aneurysm. Dictated by: Gareth Bolanos RRA Interpreted: Helene Fraire MD on 02/18/2017 at 9:17 Transcribed by: EULALIA on 02/18/2017 at 9:19 Approved by: Helene Fraire MD, PhD on 02/18/2017 at 9:20 Brief History 81-year-old white female with past medical history of back pain and murmur, hepatitis of unknown type, previous colonoscopy finding of several polyps is presenting to the ER today after several episodes of bloody stools. She states that she has had this before but these episodes would abruptly resolved on their own. On Friday around midnight she woke up and had a bloody stool and then it continued on she had 2 more 1:30 AM and then 8:30 AM. The rectal bleeding has resolved thereafter but then this a.m. she got up and started having them again. That she came to the ER. She states that the bleeding is painless, she just cramps right before having a bowel movement. She states that she has been red clots in it filled up the toilet bowl. She states that she had a number of colonoscopies she thinks the last one was 6-7 years ago. She believes at least 37 polyps were taken out during 3 scopes. She denies ever needing a blood transfusion. Because of this. She does not believe she has hemorrhoids. She states that she needed a transfusion during a hysterectomy in the remote history. Later on when she tried to donate blood she was told she had hepatitis. She does not know what type this is and she was never needed to be treated for it. She denies urinary symptoms, hematemesis, weakness, hypokalemia. She has no headaches or blurred vision. She states that she had nausea she had one episode of vomiting and Friday. She is feeling lightheaded and endorsing general malaise. She denies fevers and chills, chest pain. She has chronic back pain otherwise no acute change in her pain level. Patient does not take much medications at home she says she takes Fosamax, simvastatin, vitamin D. In the ER patient's hemoglobin dropped from 8.7-7.8 after fluids. Her blood pressure was 121/52, pulse was 66, respirations 12, pulse ox 98%, BUN 38 and creatinine is 0. 88. INR 0.91 her lab work is otherwise unremarkable. Patient is admitted to the [facility] for concern for acute lower GI bleed. Hospital Course This is a 81-year-old white female presenting with acute onset rectal bleeding. She has had prior episodes but it does not appear that she was worked up for this before Assessment #1 rectal bleed: POA, Differential includes diverticular bleed (#1), AVMs, hemorrhoids, colon cancer -- GI is consulted: Conner was ordered to prep her for colonoscopy: -- EGD: "Await biopsy results for H. pylori testing. PPI b.i.d. Avoid NSAIDs and anticoagulants. If active bleeding should restart, please obtain tagged RBC scan along with a Radiology consult for possible angiogram with possible embolization if needed." -- colonoscopy: --"Pandiverticulosis, Internal hemorrhoids. Suspect bleeding may have been diverticular, however, secondary to patient's nonsteroidal anti-inflammatory use will proceed to upper endoscopy to rule out an upper gastrointestinal source." -- Ultrasound of abdomen is ordered: -- 1 units of blood transfused -- advance diet as tolerated -- 02/18 GI Recs: "Gastrointestinal bleeding -- etiology likely diverticular rather than antral ulcers -- recommend continie PPI BID for 8 weeks , with repeat egd in 8 weeks -- colonoscopy revealed several colon polyps that were 5mm and less, discussed with patient, she will decide later if she wants to pursue colonoscopy for removal. -- recommended taking miralax if constipation and increasing fiber in diet -- if H/H stable in AM, could D/C home -my office will contact her to schedule outpatient repeat EGD" -- Patient is asked to follow up with the Dr. Calderón in GI, 's office to set up a follow-up -- Patient is doing well on the day of discharge tolerating normal diet, ambulating, not having any more rectal bleeding. Assessment #2 hepatitis of unknown type, ruled out based n hepatic panel POA -- Hepatitis panel is ordered: Negative -- Ultrasound of abdomen: Showed renal cysts, nonacute Assessment #3 low grade systolic murmur: This may be due to anemia -- 1 unit of PRBC was transfused: H&H stable at discharge -- We will consider echo if need be Assessment #4 chronic low back pain -- Continue by mouth medication Vicodin when necessary Assessment #5 osteoporosis -- Continue Fosamax Assessment #5: Abdominal Aortic Aneurysm, POA -- stable. -- "For asymptomatic patients, the risk of AAA rupture generally exceeds the risk associated with elective AAA repair when aneurysm diameter exceeds 5.5 cm " Exam Vital Signs (Last) Date Time Temp Pulse Resp B/P Pulse Ox O2 Delivery O2 Flow Rate FiO2 02/19/17 05:10 36.3 65 18 110/61 95 Room Air Exam General: Pale appearing, NAD HEENT: Normocephalic, atrauamatic Heart: Soft systolic murmur, RRR Lungs: CTA, no crackles or wheezes Ext: Trace swelling is present Neuro: No focal deficits Psych: Neg for anxiety Abd: NT, ND, normal bowel sounds Neck: Neg for JVD Test 02/17/17 05:00 02/17/17 09:53 02/17/17 21:00 02/18/17 06:02 Prothrombin Time 10.3sec (8.1-12.5) Prothromb Time International Ratio 0.96ratio Magnesium Level 1.8mg/dL (1.6-2.6) Troponin T 0.010ug/L (0.0-0.011) Hold Bateman Top Tube Received (Received) Hepatitis A IgM Antibody Negative (Negative) Hepatitis B Surface Antigen Negative (Negative) Hepatitis B Core IgM Antibody Negative (Negative) Hepatitis C Antibody <0.1s/co ratio (0.0-0.9) Hepatitis C Comment Comment (.) Urine Color Yellow (YELLOW) Urine Appearance Hazy (CLEAR,HAZY) Urine pH 5.5 (5.0-8.0) Urine Specific Lyman 1.025 (1.003-1.035) Urine Protein Negativemg/dL (NEG,TRACE) Urine Glucose (UA) Negativemg/dL (NEGATIVE) Urine Ketones Negativemg/dL (NEGATIVE) Urine Occult Blood Small (NEGATIVE) Urine Nitrite Positive (NEGATIVE) Urine Bilirubin Negative (NEGATIVE) Urine Urobilinogen Normalmg/dL (NORMAL) Urine Leukocyte Esterase Small (NEGATIVE) Urine RBC 3-10/hpf (0-2) Urine WBC 11-50/hpf (0-5) Urine Epithelial Cells Few/hpf (NONE-MOD) Urine Crystals None seen (NONE SEEN) Urine Bacteria Few/hpf (NONE-FEW) Urine Hyaline Casts None/lpf (NONE) Urine Granular Casts None seen (NONE SEEN) Urine Waxy Casts None seen (NONE SEEN) Urine Red Blood Cell Casts None seen (NONE SEEN) Urine White Blood Cell Casts None seen (NONE SEEN) Urine Mucus None seen (None Seen) Urine Trichomonas None seen (NONE SEEN) Urine Yeast None (NONE SEEN) Urinalysis Comment None Urine Culture Reflexed Indicated White Blood Count 6.2th/mm3 (3.8-10.1) Red Blood Count 2.83mil/mm3 (3.90-5.20) Mean Corpuscular Volume 87.3fL (81-100) Mean Corpuscular Hemoglobin 27.9pg (27.0-35.0) Mean Corpuscular Hemoglobin Concent 32.0% (32.0-37.0) Red Cell Distribution Width 15.0% (12.3-15.4) Platelet Count 158bil/L (150-400) Neutrophils (%) (Auto) 62.0% (40-74) Lymphocytes (%) (Auto) 22.6% (14-46) Monocytes (%) (Auto) 9.6% (4-12) Eosinophils (%) (Auto) 4.8% (0-5) Basophils (%) (Auto) 0.5% (0-3) Sodium Level 140mEq/L (134-144) Potassium Level 3.7mEq/L (3.5-5.2) Chloride Level 108mEq/L (97-108) Carbon Dioxide Level 22mmol/L (18-29) Blood Urea Nitrogen 20mg/dL (8-27) Creatinine 0.71mg/dL (0.57-1.00) Estimat Glomerular Filtration Rate 113mL/min (>59) Glucose Level 114mg/dL (60-99) Calcium Level 7.8mg/dL (8.5-10.1) Total Bilirubin 0.3mg/dL (0.0-1.2) Aspartate Amino Transf (AST/SGOT) 12U/L (0-50) Alanine Aminotransferase (ALT/SGPT) 8U/L (0-32) Alkaline Phosphatase 39U/L (25-165) Total Protein 4.8g/dL (6.4-8.4) Albumin 2.9g/dL (3.4-5.0) Test 02/19/17 05:40 Hemoglobin 7.9g/dL (12.0-15.6) Hematocrit 24.2% (35.0-46.0) Discharge Medications Discharge Medications Alendronate Sodium (Fosamax) 70 Mg Tablet 70 MG PO WEEKLY (Reported) Atorvastatin (Lipitor) 10 Mg Tab 10 MG PO DAILY (Reported) Cholecalciferol (Vitamin D3) (Vitamin D3) 5,000 Unit Tablet 5,000 UNIT PO DAILY (Reported) Ferrous Sulfate (Ferrous Sulfate) 325 Mg Tablet 325 MG PO BID Prescribed by: ADILENE HINOJOSA DO Pantoprazole (Pantoprazole DR) 40 Mg Tablet.dr 40 MG PO BIDAC Prescribed by: ADILENE HINOJOSA DO As needed Clobetasol Propionate (Clobetasol Propionate) 15 Gm Oint...g. 1 APPLIC TP Evening PRN PRN rash (Reported) Apply to external vulvar/labia rash once every pm Hydrocodone-Acetaminophen 5-325 mg (Hydrocodone-Acetaminophen 5-325 mg) 1 Each Tablet 1 TABLET PO Q4H PRN PRN For Pain (Reported) Polyethylene Glycol 3350 (Miralax) 17 Gm Powd.pack 17 GM PO DAILY PRN PRN For Constipation Prescribed by: ADILENE HINOJOSA DO Followup Plan Follow-up plan Repeat egd in 8 weeks, Dr. Gao's office will contact her to schedule outpatient repeat EGD -colonoscopy revealed several colon polyps that were 5mm and less, discussed with patient, she will decide later if she wants to pursue colonoscopy for removal. F/U with PCP in one week Repeat H&H prior to follow up in one week Discharge Diet: Heart Healthy Discharge Activity: No restrictions Patient Instructions Recommended taking miralax if constipation and increasing fiber in diet Please avoid Aspirin until you see your PCP. Avoid Etodolac, Ibuprofen and other NSAIDs. Take Pantoprazole twice daily as prescribed Time spent 40 min Adilene Hinojosa DO February 22, 2017 02:33
== END 2017-02-19 13:05 | disposition home or self-care (01) | DRG 378 ==
LOC: EDBD 04:43 → SED 04:43 → MPC 09:03
PROVIDERS: ADMIT Family Medicine; ATTEND Family Medicine
PROC: 0DJD8ZZ Inspection of Lower Intestinal Tract, Via Natural or Artificial Opening Endoscopic (ICD-10-PCS; 2017-02-17)
PROC: 30233N1 Transfusion of Nonautologous Red Blood Cells into Peripheral Vein, Percutaneous Approach (ICD-10-PCS; principal; 2017-02-17 16:00)
PROC: 0DB68ZX Excision of Stomach, Via Natural or Artificial Opening Endoscopic, Diagnostic (ICD-10-PCS; 2017-02-17 16:00)
DX: K57.31 Diverticulosis of large intestine without perforation or abscess with bleeding (principal); D62 Acute posthemorrhagic anemia; G89.29 Other chronic pain; M81.0 Age-related osteoporosis without current pathological fracture; E78.5 Hyperlipidemia, unspecified; K64.8 Other hemorrhoids; K25.9 Gastric ulcer, unspecified as acute or chronic, without hemorrhage or perforation; Z66 Do not resuscitate; Z96.653 Presence of artificial knee joint, bilateral; Z79.82 Long term (current) use of aspirin; Z79.1 Long term (current) use of non-steroidal anti-inflammatories (NSAID)